=== PATIENT | female | born 1985 | race Caucasian/White ===

== ENCOUNTER 2025-01-18 08:19 | Emergency (ER) | payer MEDICAID ==
[~2025-01-18] VITALS: Ht 167.6 cm; Wt 95.0 kg
[2025-01-18 08:27] VITALS: O2SAT 100
[2025-01-18] MEDS ORDERED: LIDOCAINE HCL/EPINEPHRINE 1%-EPI 1:100,000 30ML VIAL INFIL ONE (09:30)
[2025-01-18] MEDS: LIDOCAINE HCL/EPINEPHRINE 1%-EPI 1:100,000 20ML VIAL INFIL NR (10:00)
[2025-01-18] MEDS: CEPHALEXIN 250MG CAPSULE PO ONE (10:45)
[2025-01-18] MEDS ORDERED: CEPH500T MT (12:00)
[2025-01-18 12:05] VITALS: BP 120/68; PULSE 88; RESP 18; TEMP 36.6; O2SAT 100
[2025-01-18] MEDS ORDERED: BACITRACIN ZINC OINT UDPKT TOP ONE (12:15)
[2025-01-18] MEDS ORDERED: BACITRACIN 14GM TUBE TOP ONE (12:15)
== END 2025-01-18 12:23 | disposition home or self-care (01) ==
LOC: ER 08:19
DX: S71.112A Laceration without foreign body, left thigh, initial encounter (principal); X58.XXXA Exposure to other specified factors, initial encounter; Y92.89 Other specified places as the place of occurrence of the external cause; Y93.39 Activity, other involving climbing, rappelling and jumping off; Y99.8 Other external cause status
CPT/HCPCS: 73552; 12002; 99283; J2004; Z7610 ×2; A6449